=== PATIENT | female | born 1970 | race Two or more races ===

== ENCOUNTER 2019-08-16 09:09 | Emergency (ER) | payer OTHER ==
[~2019-08-16] VITALS: Ht 162.6 cm; Wt 74.8 kg
[2019-08-16] MEDS ORDERED: AVALIDE 300-121 EACH (09:23)
== END 2019-08-16 12:24 | disposition home or self-care (01) ==
LOC: ER 09:09
DX: N20.2 Calculus of kidney with calculus of ureter (principal); N23 Unspecified renal colic